=== PATIENT | male | born 1975 | race Caucasian/White ===

== ENCOUNTER 2017-11-20 18:13 | Inpatient (IN) | payer MEDICAID ==
[~2017-11-20] VITALS: Ht 182.9 cm; Wt 92.7 kg
[~2017-11-20 18:13] MED LIST: HYDR-569 PO; IBUP-1986 PO
[2017-11-20] MEDS ORDERED: ibuprofen 200mg tablet PO ONE (18:30)
[2017-11-20 19:01] LABS: BASOPHILS % (AUTO) 0.4 % (0-1); EOSINOPHILS # (AUTO) 0.3 X10'3 (0-0.9); EOSINOPHILS % (AUTO) 2.7 % (0-6); HEMATOCRIT 41.9 % (42.0-52.0); LYMPHOCYTES # (AUTO) 1.4 X10'3 (1.1-4.8); LYMPHOCYTES % (AUTO) 14.3 % (21-51); MEAN CORPUSCULAR HEMOGLOBIN 30.5 PG (27.0-31.0); MEAN CORPUSCULAR HGB CONC 33.4 % (33.0-36.5); MEAN CORPUSCULAR VOLUME 91.1 FL (78-98); MONOCYTES # (AUTO) 0.5 X10'3 (0-0.9); MONOCYTES % (AUTO) 5.2 % (2-12); NEUTROPHILS # (AUTO) 7.8 X10'3 (1.8-7.7); NEUTROPHILS % (AUTO) 77.4 % (42-75); PLATELET COUNT 318 X10'3 (140-440); RED CELL DISTRIBUTION WIDTH 14.1 % (11.5-14.5)
[2017-11-20] MEDS ORDERED: vancomycin/NS 1 GM ADD-VANTAGE 250 ML IV ONE (19:05)
[2017-11-20] MEDS ORDERED: normal saline 1000ML IV soln IVB ONE (19:05)
[2017-11-20] MEDS ORDERED: piperacillin/tazo 3.375gm/50ml 50 ML IV ONE (19:05)
[2017-11-20 19:13] LABS: ALANINE AMINOTRANSFERASE 25 U/L (12-78); ALBUMIN 3.2 G/DL (3.4-5.0); ALBUMIN/GLOBULIN RATIO 0.6 (1.1-1.5); ALKALINE PHOSPHATASE 100 IU/L (46-116); ANION GAP 4 (8-16); ASPARTATE AMINO TRANSFERASE 20 U/L (10-37); BILIRUBIN,TOTAL 0.5 MG/DL (0.1-1.0); BLOOD UREA NITROGEN 11 MG/DL (7-18); BUN/CREATININE RATIO 12.2 (5.4-32.0); CALCIUM 9.5 MG/DL (8.5-10.1); CHLORIDE 101 MMOL/L (99-107); GLUCOSE 107 MG/DL (70-104); SODIUM 136 MMOL/L (135-145); TOTAL PROTEIN 8.3 G/DL (6.4-8.2); eGFR > 90 ML/MIN
[2017-11-20] MEDS ORDERED: ondansetron/PF 4mg/2ml inj IV PRN (20:20)
[2017-11-20] MEDS ORDERED: mag hydrox/Alum hydrox/simeth 30ml oral suspension PO PRN (20:20)
[2017-11-20] MEDS ORDERED: magnesium hydroxide 30ml (MOM) UD suspension PO PRN (20:20)
[2017-11-20] MEDS ORDERED: acetaminophen 325mg tablet PO PRN (20:20)
[2017-11-20] MEDS ORDERED: vancomycin/NS 1 GM ADD-VANTAGE 250 ML X 1 DOSE IV ONE (20:35)
[2017-11-20] MEDS: normal saline 1000ml 1,000 ML IV SCH (20:49)
[2017-11-20 21:35] VITALS: BP 139/73
[2017-11-21] VITALS: BP 132/68
[2017-11-21] MEDS: normal saline 1000ml 1,000 ML IV SCH ×2 (06:20→08:41)
[2017-11-21 07:15] VITALS: BP 132/71
[2017-11-21] MEDS ORDERED: vancomycin/NS 1 GM ADD-VANTAGE 250 ML IV SCH (08:00)
[2017-11-21] MEDS: amox tr/potassium clavulanate 875/125mg TAB PO SCH ×2 (08:34→16:53)
[2017-11-21] MEDS: heparin, porcine 5000 units/ml vial SQ SCH ×2 (08:35→20:37)
[2017-11-21] MEDS: HYDROcodone/acetaminophen 10/325mg tab PO PRN ×3 (08:43→22:43)
[2017-11-21] MEDS: LACTOBACILLUS RHAMNOSUS GG 15 billion unit sprinkle caps PO SCH (08:49)
[2017-11-21 08:52] LABS: ALBUMIN 2.4 G/DL (3.4-5.0); ANION GAP 3 (8-16); BLOOD UREA NITROGEN 11 MG/DL (7-18); BUN/CREATININE RATIO 13.8 (5.4-32.0); CHLORIDE 108 MMOL/L (99-107); GLUCOSE 97 MG/DL (70-104); POTASSIUM 4.5 MMOL/L (3.5-5.1); SODIUM 141 MMOL/L (135-145); TOTAL CARBON DIOXIDE 30.3 MMOL/L (24-32); eGFR > 90 ML/MIN
[2017-11-21 08:57] LABS: BASOPHILS % (AUTO) 0.5 % (0-1); EOSINOPHILS # (AUTO) 0.3 X10'3 (0-0.9); EOSINOPHILS % (AUTO) 4.2 % (0-6); HEMATOCRIT 40.3 % (42.0-52.0); HEMOGLOBIN 13.5 g/dl (14.0-17.9); LYMPHOCYTES # (AUTO) 1.3 X10'3 (1.1-4.8); LYMPHOCYTES % (AUTO) 16.8 % (21-51); MEAN CORPUSCULAR HEMOGLOBIN 30.5 PG (27.0-31.0); MEAN CORPUSCULAR HGB CONC 33.4 % (33.0-36.5); MEAN CORPUSCULAR VOLUME 91.3 FL (78-98); MEAN PLATELET VOLUME 8.5 FL (7.4-10.4); MONOCYTES # (AUTO) 0.6 X10'3 (0-0.9); MONOCYTES % (AUTO) 7.5 % (2-12); NEUTROPHILS # (AUTO) 5.6 X10'3 (1.8-7.7); PLATELET COUNT 264 X10'3 (140-440); RED BLOOD COUNT 4.42 X10'6 (4.70-6.10); RED CELL DISTRIBUTION WIDTH 13.8 % (11.5-14.5); WHITE BLOOD COUNT 7.9 X10'3 (4.5-11.0)
[2017-11-21] MEDS: vancomycin inj 1,250 MG in normal saline 250ml IV soln 250 ML IV SCH ×2 (09:04→16:07)
[2017-11-21] MEDS ORDERED: IBUP-1985 PO (09:27)
[2017-11-21 10:46] LABS: CLARITY,URINE CLEAR (Clear); COLOR,URINE STRAW (Yellow); GLUCOSE, URINE NEGATIVE (Neg); KETONES,URINE NEGATIVE (Neg); LEUKOCYTE ESTERASE ,URINE NEGATIVE (Neg); NITRITES, URINE NEGATIVE (Neg); OCCULT BLOOD,URINE NEGATIVE (Neg); PROTEIN,URINE NEGATIVE (Neg); UROBILINOGEN,URINE 0.2 E.U/dL (0.2-1.0)
[2017-11-21 10:48] LABS: UA COLLECTION TYPE CLN CATCH MIDSTREAM
[2017-11-21 11:36] VITALS: BP 133/69
[2017-11-21 11:37] VITALS: BP 136/77
[2017-11-21 20:00] VITALS: BP 139/82
[2017-11-22] MEDS: vancomycin inj 1,250 MG in normal saline 250ml IV soln 250 ML IV SCH ×3 (00:10→16:11)
[2017-11-22 02:03] VITALS: BP 131/72
[2017-11-22] MEDS: HYDROcodone/acetaminophen 10/325mg tab PO PRN ×3 (03:41→20:01)
[2017-11-22] MEDS: normal saline 1000ml 1,000 ML IV SCH ×3 (03:44→14:27)
[2017-11-22 07:06] VITALS: BP 138/72
[2017-11-22] MEDS ORDERED: VANCOMYCIN LEVEL IV ONE (07:30)
[2017-11-22] MEDS: amox tr/potassium clavulanate 875/125mg TAB PO SCH ×2 (08:04→16:58)
[2017-11-22] MEDS: LACTOBACILLUS RHAMNOSUS GG 15 billion unit sprinkle caps PO SCH (08:04)
[2017-11-22] MEDS: heparin, porcine 5000 units/ml vial SQ SCH ×2 (08:05→20:01)
[2017-11-22] MEDS: silver sulfadiazine cream 400gm jar TP SCH (08:05)
[2017-11-22 11:00] VITALS: BP 142/87
[2017-11-22] MEDS: nicotine 14mg patch - 24hr TD SCH (12:45)
[2017-11-22] MEDS ORDERED: LORazepam 0.5 MG tablet PO PRN (14:05)
[2017-11-22] MEDS: ketorolac trometh. 30mg/ml inj. IV PRN (14:41)
[2017-11-22 20:00] VITALS: BP 138/73
[2017-11-23] VITALS: BP 131/72
[2017-11-23] MEDS: vancomycin inj 1,250 MG in normal saline 250ml IV soln 250 ML IV SCH ×3 (00:01→16:00)
[2017-11-23] MEDS: normal saline 1000ml 1,000 ML IV SCH ×2 (00:07→19:37)
[2017-11-23] MEDS: ketorolac trometh. 30mg/ml inj. IV PRN (06:01)
[2017-11-23] MEDS: silver sulfadiazine cream 400gm jar TP SCH (07:51)
[2017-11-23] MEDS: LACTOBACILLUS RHAMNOSUS GG 15 billion unit sprinkle caps PO SCH (07:51)
[2017-11-23] MEDS: heparin, porcine 5000 units/ml vial SQ SCH ×2 (07:51→19:39)
[2017-11-23] MEDS: nicotine 14mg patch - 24hr TD SCH (07:52)
[2017-11-23] MEDS: amox tr/potassium clavulanate 875/125mg TAB PO SCH ×2 (07:52→17:49)
[2017-11-23 08:00] VITALS: BP 159/85
[2017-11-23] MEDS: HYDROcodone/acetaminophen 10/325mg tab PO PRN (08:03)
[2017-11-23 11:00] VITALS: BP 130/73
[2017-11-23] MEDS ORDERED: gadopentetate dimeglumine 7.5 MMOL/15 ML syringe ONE (14:27)
[2017-11-23 20:00] VITALS: BP 135/69
== END 2017-11-23 20:40 | disposition left against medical advice (07) | DRG 383 ==
LOC: ER 18:14 → ED HOLD 20:20 → MED 3N 21:30
PROVIDERS: ADMIT Internal Medicine; ATTEND Nurse Practitioner Family
DX: L03.115 Cellulitis of right lower limb (principal); Z86.14 Personal history of Methicillin resistant Staphylococcus aureus infection; Z53.21 Procedure and treatment not carried out due to patient leaving prior to being seen by health care provider; Z60.2 Problems related to living alone; Z87.891 Personal history of nicotine dependence; Z59.0 Homelessness; Z79.899 Other long term (current) drug therapy
CPT/HCPCS: 36415; 73720; 80048; 80053; 80202; 81003; 83605; 84145; 85025; 87040; 87070; 87077; 87186; 93971; 96365; 96368; 99285; A6212; A9579; J1644; J1885; J2543; J3370; J7030

== ENCOUNTER 2019-11-02 00:13 | Emergency (ER) | payer MEDICAID, OTHER ==
[~2019-11-02] VITALS: Ht 182.9 cm; Wt 97.7 kg
[~2019-11-02 00:13] MED LIST changes: -HYDR-569 PO; +IBUP-1985 PO; -IBUP-1986 PO
[2019-11-02] MEDS ORDERED: sulfamethoxazole/trimethoprim DS (800/160mg) tablet PO ONE (01:00)
[2019-11-02] MEDS ORDERED: LIDOcaine 1% W/epiNEPHrine 1:200,000 10ml vial IJ ONE (01:00)
[2019-11-02] MEDS ORDERED: TETanus/Pertussis (Acell)/Diphther VAC/PF (Tdap-Adult) 0.5ml syringe IMVAC ONE (01:00)
[2019-11-02] MEDS ORDERED: NAPR-56 PO (01:39)
[2019-11-02] MEDS ORDERED: SULF1TAB48 PO (01:39)
[2019-11-02] MEDS ORDERED: LACT1CAP65 PO (01:39)
[2019-11-02] MEDS ORDERED: HYDROcodone/acetaminophen 10/325mg tab PO ONE (01:55)
[2019-11-02 02:00] VITALS: BP 162/90
== END 2019-11-02 02:02 ==
LOC: ER 00:14
DX: L02.511 Cutaneous abscess of right hand (principal); L03.113 Cellulitis of right upper limb; F17.200 Nicotine dependence, unspecified, uncomplicated; F15.90 Other stimulant use, unspecified, uncomplicated; Z86.14 Personal history of Methicillin resistant Staphylococcus aureus infection; Z60.2 Problems related to living alone; Z59.0 Homelessness; Z79.899 Other long term (current) drug therapy
CPT/HCPCS: 10061; 90471; 90715; 99284